=== PATIENT | male | born 1940 | race Caucasian/White ===

== ENCOUNTER 2022-09-17 23:38 | Inpatient (IN) ==
[2022-09-18] MEDS ORDERED: SODIUM CHLORIDE 0.9% 500 ML IV STA (00:15)
[2022-09-18 01:29] LABS: Basophils % 0.2 % (0.0-0.8); Eosinophils % 0.1 % (0.00-10.9); Hematocrit 38.8 VOL% (42.0-52.0); Hemoglobin 12.5 GM/DL (14.0-18.0); Immature Granulocytes % 0.7 %; Immature Granulocytes Absolute 0.12 #; Lymphocytes # 1.3 10*3/uL (1.4-4.0); Lymphocytes % 7.8 % (21.2-54.2); Mean Corpuscular HGB Conc 32.2 GM/DL (32-36); Mean Corpuscular Volume 84.9 FL (87-102); Mean Platelet Volume 11.7 FL (9.6-12.0); Monocytes # 1.5 10*3/uL (0.11-0.8); Monocytes % 8.8 % (1.7-12.7); Neutrophils % 82.4 % (38.7-73.9); Platelet Count 145 T/CUMM (130-400); Red Blood Count 4.57 MC/CUMM (3.8-5.5); Red Cell Distribution Width 13.9 % (9.3-17.3); White Blood Count 16.95 T/CUMM (4-12)
[2022-09-18 01:41] LABS: Bacteria,Urine Many /HPF (Few); Mucus,Urine Few /LPF (Occasional); RBC,Urine 2 /HPF (0-4)
[2022-09-18 01:42] LABS: Bilirubin,Urine Negative (Negative); Blood, Urine Small mg/dL (Negative); Glucose,Urine (UA) >=1000 mg/dL (Negative); Ketones,Urine Trace mg/dL (Negative); Nitrite,Urine Positive (Negative); Protein,Urine 30 mg/dL (Negative); Urine Appearance Clear (Clear); Urine Color Yellow (Yellow); Urine Specific Gravity >= 1.030 (1.001-1.035); Urine Urobilinogen 0.2 eU/dL (<2.0)
[2022-09-18 01:57] LABS: Alanine Aminotransferase 24 U/L (16-61); Albumin 2.8 G/DL (3.4-5.0); Alkaline Phosphatase 90 U/L (45-117); Aspartate Amino Transferase 21 U/L (0-37); Blood Urea Nitrogen 25 MG/DL (7-18); Calcium 8.9 MG/DL (8.5-10.1); Carbon Dioxide 22 MMOL/L (21-32); Chloride 99 MMOL/L (98-107); Glucose 281 MG/DL (74-106); Osmolality,Calculated 273.8 MOS/KG (273-304); Potassium 3.8 MMOL/L (3.5-5.1); Sodium 130 MMOL/L (136-145)
[2022-09-18 02:38] LABS: Sedimentation Rate-Westergren 82 MM/HR (0-20)
[2022-09-18] MEDS ORDERED: MEROPENEM 1,000 MG in SODIUM CHLORIDE 0.9% 100 ML IV ONE (02:39)
[2022-09-18] MEDS ORDERED: GLUCAGON 1 MG VIAL IM PRN (03:13)
[2022-09-18] MEDS ORDERED: ONDANSETRON 4 MG/2 ML VIAL IV PRN (03:13)
[2022-09-18] MEDS ORDERED: DEXTROSE 10% 250 ML BAG IV PRN (03:28)
[2022-09-18] MEDS: SODIUM CHLORIDE 0.9% 1,000 ML IV SCH ×2 (06:00→20:51)
[2022-09-18] MEDS: TAMSULOSIN 0.4 MG CAPSULE PO SCH (08:55)
[2022-09-18] MEDS: METOPROLOL TARTRATE 25 MG TABLET PO SCH ×2 (08:55→20:52)
[2022-09-18] MEDS: ATORVASTATIN 20 MG TABLET PO SCH (08:55)
[2022-09-18] MEDS: ASPIRIN EC 81 MG TABLET PO SCH (08:55)
[2022-09-18] MEDS: INSULIN REGULAR 100 UNIT/ML SUBCUT SCH ×4 (08:55→21:35)
[2022-09-18] MEDS: ENOXAPARIN 40 MG/0.4 ML SYRINGE SUBCUT SCH (08:55)
[2022-09-18] MEDS: cefTRIAXone 1,000 MG in SODIUM CHLORIDE 0.9% 100 ML IV SCH (08:56)
[2022-09-18] MEDS: PANTOPRAZOLE 40 MG TABLET PO SCH (08:56)
[2022-09-18] MEDS: buPROPion SR 150 MG TABLET PO SCH ×2 (09:16→20:52)
[2022-09-18] MEDS: ZALEPLON 5 MG CAPSULE PO SCH (20:52)
[2022-09-19 05:10] LABS: Basophils % 0.3 % (0.0-0.8); Eosinophils # 0.2 10*3/uL (0.0-0.87); Eosinophils % 1.9 % (0.00-10.9); Hematocrit 35.1 VOL% (42.0-52.0); Hemoglobin 11.1 GM/DL (14.0-18.0); Immature Granulocytes % 0.6 %; Immature Granulocytes Absolute 0.08 #; Lymphocytes # 1.7 10*3/uL (1.4-4.0); Lymphocytes % 13.5 % (21.2-54.2); Mean Corpuscular HGB Conc 31.6 GM/DL (32-36); Mean Corpuscular Volume 85.6 FL (87-102); Monocytes # 1.4 10*3/uL (0.11-0.8); Monocytes % 11.3 % (1.7-12.7); Neutrophils % 72.4 % (38.7-73.9); Platelet Count 133 T/CUMM (130-400); Red Cell Distribution Width 14.3 % (9.3-17.3); White Blood Count 12.43 T/CUMM (4-12)
[2022-09-19 05:36] LABS: Albumin 2.1 G/DL (3.4-5.0); Bilirubin,Total 0.6 MG/DL (0.20-1.00); Osmolality,Calculated 275.2 MOS/KG (273-304); Potassium 3.7 MMOL/L (3.5-5.1); Total Protein 5.6 G/DL (6.4-8.2)
[2022-09-19] MEDS: SODIUM CHLORIDE 0.9% 1,000 ML IV SCH ×2 (08:51→23:35)
[2022-09-19] MEDS: cefTRIAXone 1,000 MG in SODIUM CHLORIDE 0.9% 100 ML IV SCH (08:52)
[2022-09-19] MEDS: INSULIN REGULAR 100 UNIT/ML SUBCUT SCH ×4 (08:53→21:03)
[2022-09-19] MEDS: TAMSULOSIN 0.4 MG CAPSULE PO SCH (08:53)
[2022-09-19] MEDS: PANTOPRAZOLE 40 MG TABLET PO SCH (08:53)
[2022-09-19] MEDS: ENOXAPARIN 40 MG/0.4 ML SYRINGE SUBCUT SCH (08:53)
[2022-09-19] MEDS: METOPROLOL TARTRATE 25 MG TABLET PO SCH ×2 (08:54→21:03)
[2022-09-19] MEDS: ATORVASTATIN 20 MG TABLET PO SCH (08:54)
[2022-09-19] MEDS: buPROPion SR 150 MG TABLET PO SCH ×2 (08:54→21:03)
[2022-09-19] MEDS: ASPIRIN EC 81 MG TABLET PO SCH (08:54)
[2022-09-19] MEDS ORDERED: cefTRIAXone 1,000 MG in SODIUM CHLORIDE 0.9% 100 ML IV ONE (11:34)
[2022-09-19] MEDS: MENTHOL/ZINC OXIDE OINT 71 GM JAR TOP SCH ×2 (14:31→21:40)
[2022-09-19] MEDS: ZALEPLON 5 MG CAPSULE PO SCH (21:03)
[2022-09-20 07:50] LABS: Basophils # 0.1 10*3/uL (0.0-0.2); Basophils % 0.5 % (0.0-0.8); Eosinophils # 0.5 10*3/uL (0.0-0.87); Hematocrit 37.6 VOL% (42.0-52.0); Hemoglobin 11.8 GM/DL (14.0-18.0); Immature Granulocytes % 0.5 %; Immature Granulocytes Absolute 0.05 #; Lymphocytes # 1.5 10*3/uL (1.4-4.0); Mean Corpuscular HGB Conc 31.4 GM/DL (32-36); Mean Corpuscular Volume 86.6 FL (87-102); Mean Platelet Volume 12.5 FL (9.6-12.0); Monocytes # 1.2 10*3/uL (0.11-0.8); Monocytes % 11.7 % (1.7-12.7); Neutrophils % 67.3 % (38.7-73.9); Platelet Count 150 T/CUMM (130-400); Red Blood Count 4.34 MC/CUMM (3.8-5.5); Red Cell Distribution Width 14.3 % (9.3-17.3); White Blood Count 10.29 T/CUMM (4-12)
[2022-09-20] MEDS: cefTRIAXone 2,000 MG in SODIUM CHLORIDE 0.9% 100 ML IV SCH (10:15)
[2022-09-20] MEDS: ATORVASTATIN 20 MG TABLET PO SCH (10:16)
[2022-09-20] MEDS: INSULIN REGULAR 100 UNIT/ML SUBCUT SCH ×4 (10:16→21:15)
[2022-09-20] MEDS: METOPROLOL TARTRATE 25 MG TABLET PO SCH ×2 (10:16→21:08)
[2022-09-20] MEDS: buPROPion SR 150 MG TABLET PO SCH ×2 (10:16→21:09)
[2022-09-20] MEDS: TAMSULOSIN 0.4 MG CAPSULE PO SCH (10:17)
[2022-09-20] MEDS: ASPIRIN EC 81 MG TABLET PO SCH (10:17)
[2022-09-20] MEDS: MENTHOL/ZINC OXIDE OINT 71 GM JAR TOP SCH ×2 (10:17→21:08)
[2022-09-20] MEDS: PANTOPRAZOLE 40 MG TABLET PO SCH (10:17)
[2022-09-20] MEDS: ENOXAPARIN 40 MG/0.4 ML SYRINGE SUBCUT SCH (10:17)
[2022-09-20] MEDS: SODIUM CHLORIDE 0.9% 1,000 ML IV SCH (10:20)
[2022-09-20] MEDS ORDERED: INSULIN GLARGINE 100 UNIT/ML SUBCUT SCH (21:00)
[2022-09-20] MEDS: ZALEPLON 5 MG CAPSULE PO SCH (21:08)
[2022-09-21] MEDS: SODIUM CHLORIDE 0.9% 1,000 ML IV SCH ×2 (01:16→16:55)
[2022-09-21] MEDS: INSULIN REGULAR 100 UNIT/ML SUBCUT SCH ×4 (08:28→20:59)
[2022-09-21] MEDS: cefTRIAXone 2,000 MG in SODIUM CHLORIDE 0.9% 100 ML IV SCH (08:58)
[2022-09-21] MEDS: ATORVASTATIN 20 MG TABLET PO SCH (08:58)
[2022-09-21] MEDS: buPROPion SR 150 MG TABLET PO SCH ×2 (08:58→20:58)
[2022-09-21] MEDS: METOPROLOL TARTRATE 25 MG TABLET PO SCH ×2 (08:58→20:58)
[2022-09-21] MEDS: ASPIRIN EC 81 MG TABLET PO SCH (08:58)
[2022-09-21] MEDS: PANTOPRAZOLE 40 MG TABLET PO SCH (08:58)
[2022-09-21] MEDS: TAMSULOSIN 0.4 MG CAPSULE PO SCH (08:58)
[2022-09-21] MEDS: ENOXAPARIN 40 MG/0.4 ML SYRINGE SUBCUT SCH (08:58)
[2022-09-21] MEDS: MENTHOL/ZINC OXIDE OINT 71 GM JAR TOP SCH ×2 (11:41→20:58)
[2022-09-21] MEDS: ZALEPLON 5 MG CAPSULE PO SCH (20:58)
[2022-09-21] MEDS ORDERED: INSULIN GLARGINE 100 UNIT/ML SUBCUT SCH (21:00)
[2022-09-22 05:44] LABS: Basophils # 0.1 10*3/uL (0.0-0.2); Basophils % 0.6 % (0.0-0.8); Eosinophils # 0.6 10*3/uL (0.0-0.87); Eosinophils % 6.1 % (0.00-10.9); Hematocrit 36.6 VOL% (42.0-52.0); Hemoglobin 11.6 GM/DL (14.0-18.0); Immature Granulocytes % 0.6 %; Immature Granulocytes Absolute 0.06 #; Lymphocytes % 19.6 % (21.2-54.2); Mean Corpuscular HGB Conc 31.7 GM/DL (32-36); Mean Corpuscular Volume 85.9 FL (87-102); Mean Platelet Volume 11.4 FL (9.6-12.0); Monocytes # 1.1 10*3/uL (0.11-0.8); Monocytes % 11.1 % (1.7-12.7); Platelet Count 193 T/CUMM (130-400); Red Blood Count 4.26 MC/CUMM (3.8-5.5); Red Cell Distribution Width 14.3 % (9.3-17.3); White Blood Count 10.19 T/CUMM (4-12)
[2022-09-22 06:18] LABS: Calcium 7.9 MG/DL (8.5-10.1); Osmolality,Calculated 279.5 MOS/KG (273-304); Potassium 3.6 MMOL/L (3.5-5.1)
[2022-09-22] MEDS: cefTRIAXone 2,000 MG in SODIUM CHLORIDE 0.9% 100 ML IV SCH (09:48)
[2022-09-22] MEDS: ASPIRIN EC 81 MG TABLET PO SCH (09:49)
[2022-09-22] MEDS: INSULIN REGULAR 100 UNIT/ML SUBCUT SCH ×4 (09:49→21:40)
[2022-09-22] MEDS: METOPROLOL TARTRATE 25 MG TABLET PO SCH ×2 (09:49→21:19)
[2022-09-22] MEDS: ATORVASTATIN 20 MG TABLET PO SCH (09:49)
[2022-09-22] MEDS: TAMSULOSIN 0.4 MG CAPSULE PO SCH (09:49)
[2022-09-22] MEDS: buPROPion SR 150 MG TABLET PO SCH ×2 (09:49→21:19)
[2022-09-22] MEDS: PANTOPRAZOLE 40 MG TABLET PO SCH (09:49)
[2022-09-22] MEDS: ENOXAPARIN 40 MG/0.4 ML SYRINGE SUBCUT SCH (09:49)
[2022-09-22] MEDS: SODIUM CHLORIDE 0.9% 1,000 ML IV SCH ×3 (10:02→21:43)
[2022-09-22] MEDS: MENTHOL/ZINC OXIDE OINT 71 GM JAR TOP SCH ×2 (13:00→21:42)
[2022-09-22] MEDS: DOCUSATE SODIUM 100 MG CAPSULE PO SCH ×2 (17:02→21:35)
[2022-09-22] MEDS ORDERED: INSULIN GLARGINE 100 UNIT/ML SUBCUT SCH (21:00)
[2022-09-22] MEDS: ZALEPLON 5 MG CAPSULE PO SCH (21:19)
[2022-09-23] MEDS: cefTRIAXone 2,000 MG in SODIUM CHLORIDE 0.9% 100 ML IV SCH (08:32)
[2022-09-23] MEDS: ATORVASTATIN 20 MG TABLET PO SCH (08:32)
[2022-09-23] MEDS: METOPROLOL TARTRATE 25 MG TABLET PO SCH (08:32)
[2022-09-23] MEDS: PANTOPRAZOLE 40 MG TABLET PO SCH (08:33)
[2022-09-23] MEDS: ENOXAPARIN 40 MG/0.4 ML SYRINGE SUBCUT SCH (08:33)
[2022-09-23] MEDS: MENTHOL/ZINC OXIDE OINT 71 GM JAR TOP SCH (08:33)
[2022-09-23] MEDS: ASPIRIN EC 81 MG TABLET PO SCH (08:33)
[2022-09-23] MEDS: TAMSULOSIN 0.4 MG CAPSULE PO SCH (08:33)
[2022-09-23] MEDS: DOCUSATE SODIUM 100 MG CAPSULE PO SCH (08:33)
[2022-09-23] MEDS: buPROPion SR 150 MG TABLET PO SCH (08:33)
[2022-09-23] MEDS: INSULIN REGULAR 100 UNIT/ML SUBCUT SCH (09:39)
[2022-09-23 11:07] VITALS: BP 143/63
== END 2022-09-23 11:27 | disposition swing bed (61) | DRG 690 ==
LOC: EDUNIT# → EDBD → N.ED 23:38 → N.EDINP 23:38 → SUATTDRO 09-18 03:13 → N.3E 09-18 15:00 → SUATTDRO 09-19 09:31
PROVIDERS: ADMIT Internal Medicine; ATTEND Internal Medicine